=== PATIENT | male | born 1975 | race Caucasian/White ===

== ENCOUNTER 2021-01-10 14:36 | Emergency (ER) | payer OTHER ==
[~2021-01-10] VITALS: Ht 188 cm; Wt 122.7 kg
[2021-01-10 14:54] VITALS: BP 130/93; TEMP 97.6
[2021-01-10 17:14] VITALS: PULSE 89
== END 2021-01-10 17:18 | disposition home or self-care (01) ==
LOC: COL.ER 14:36
DX: J06.9 Acute upper respiratory infection, unspecified (principal); Z20.822 Contact with and (suspected) exposure to COVID-19